=== PATIENT | female | born 1940 | race Caucasian/White ===

== ENCOUNTER 2021-07-11 17:40 | Emergency (ER) | payer MEDICARE, BC ==
[~2021-07-11] VITALS: Ht 152.4 cm; Wt 81.0 kg
--- NOTE | 2021-07-11 17:58 | PHYS DOC ---
Past History Past Surgical History: Knee Replacement General Adult EDM: Chief Complaint: MECHANICAL FALL HPI: HPI: " Look I am not going to be admitted.. I just missed a step.. forgot there was a curb..at the handicap parking.. and fell busting my head, Lt elbow and Lt side my chest.. I didnt black out or any thing... I just got the skin tears.... My lt chest wall sore...".."Just tape me up and send me home.. " I didnt want to come anyway..and certainly not going to stay.." Patient is a 81 year old female who presents with above hx and complaints trip and fall resulting in hitting head and skin tear to left elbow and large contusion left-sided chest. Patient denies any loss of consciousness. Patient had obviously ecchymosis and contusion periorbital left eye. Patient has large skin tear to the elbow left elbow. Has a significant bruise to the left chest wall. No recent travel. No specific ill contacts. Unsure of her last tetanus date. Review of Systems: Review of Systems: Constitutional: Denies fever or chills Eyes: Denies change in visual acuity HENT: Denies nasal congestion or sore throat. Complains of head injury Respiratory: Denies cough or shortness of breath Cardiovascular: Denies chest pain or edema GI: Denies abdominal pain, nausea, vomiting, bloody stools or diarrhea : Denies dysuria Musculoskeletal: Complains of left elbow injury and chest wall contusion Integument: Denies rash Neurologic: Denies headache, focal weakness or sensory changes Endocrine: Denies polyuria or polydipsia Lymphatic: Denies swollen glands Psychiatric: Denies depression or anxiety Family History: Family History: Noncontributory Current Medications: Current Meds: See nursing for home meds Allergies: Allergies: Allergic to NSAIDs Physical Exam: PE: Constitutional: Mild o acute distress, non-toxic appearance. [] HENT: Normocephalic, left facial contusion bilateral external ears normal, oropharynx moist, no oral exudates, nose normal. [] Eyes: PERRLA, EOMI, conjunctiva normal, no discharge. [] Neck: Normal range of motion, no tenderness, supple, no stridor. [] Cardiovascular:Heart rate regular rhythm, no murmur, PMI to left Lungs & Thorax: Bilateral breath sounds clear to auscultation large contusion left chest wall. Midline scar Abdomen: Bowel sounds normal, soft, no tenderness, no masses, no pulsatile masses. [] Skin: Warm, dry, no erythema, no rash. Abrasion contusion scattered contusion left elbow and skin tear Back: No tenderness, no CVA tenderness. [] Extremities: Stable tenderness, no cyanosis, no clubbing, ROM intact, full edema. [] Bilateral knee scars Neurologic: Alert and oriented X 3, normal motor function, normal sensory function, no focal deficits noted. [] Psychologic: Affect anxious, judgement normal, mood normal. [] EKG: EKG: [] Radiology/Procedures: Radiology/Procedures: [ IMAGING REPORT Signed PATIENT: BUTCH PALENCIA ACCOUNT: [id number] : 1940 LOCATION: ER AGE: 81 SEX: F EXAM STATUS: PRE ER ORD. PHYSICIAN: LUISITO BUTLER MD REASON: trip and fall, RIGHT EYE CUT, LEFT EYE BRUISED & SWOLLEN PROCEDURE: CT HEAD AND CERVICAL SPINE WO CT Head W/O Contrast: History: Reason: trip and fall, RIGHT EYE CUT, LEFT EYE BRUISED SWOLLEN / Spl. Instructions: / History: Comparison: none Axial images were obtained without contrast. The dickerson and white matter appears normal and symmetrical for the patients age. There is no mass effect, extraaxial fluid collections or hydrocephalus. There is no gross bleed. There is no focal loss of dickerson-white matter distinction to suggest acute ischemia, i.e. stroke. There is a scalp hematoma above the left orbit. Impression: No acute intracranial findings. End impression CT C-Spine without contrast: Clinical History: Reason: trip and fall, RIGHT EYE CUT, LEFT EYE BRUISED SWOLLEN / Spl. Instructions: / History: Technique: Axial helical images of the cervical spine were obtained without contrast, axial coronal and sagittal reconstruction was performed. Findings: There is no loss of vertebral body stature. There is no prevertebral soft tissue swelling. The vertebral bodies are well aligned. The C1-C2 relationship is normal. The visualized osseous structures appear normal. Evaluation of the central canal is limited without contrast. There is multiple posterior disc bulges resulting in flattening of the thecal sac. At C5-C6 there is a disc ossific ridge which posteriorly is eccentric to the left and causes mild impression on the anterior surface the cervical cord. There is moderate narrowing of multiple neuroforamen and there is marked narrowing of left neuroforamen at C5-C6. Impression: No acute findings. Clinical correlation suggested. PQRS Compliance Statement: One or more of the following individualized dose reduction techniques were utilized for this examination: 1. Automated exposure control 2. Adjustment of the mA and/or kV according to patient size 3. Use of iterative reconstruction technique Electronically signed by: Marck Conn III, MD (07/11/2021 7:04 PM) [facility] DICTATED AND SIGNED BY: MARCK CONN III, MD DATE: 07/11/211856 CC: LUISITO BUTLER MD ~MTH0 0 ][place] [address] IMAGING REPORT Signed PATIENT: BUTCH PALENCIA ACCOUNT: [id number] : 1940 LOCATION: ER AGE: 81 SEX: F EXAM STATUS: PRE ER ORD. PHYSICIAN: LUISITO BUTLER MD REASON: fall PROCEDURE: CHEST PA & LATERAL Exam: Chest 2 views INDICATION: Fall TECHNIQUE: Frontal and lateral views of the chest Comparisons: None FINDINGS: Pacer with leads remaining the right atrium and ventricle. The cardiomediastinal silhouette and pulmonary vessels are within normal limits. The lung and pleural spaces are clear. IMPRESSION: No acute cardiopulmonary process. Electronically signed by: Lori Schreiber MD (07/11/2021 7:59 PM) [facility] DICTATED AND SIGNED BY: LORI SCHREIBER MD DATE: 07/11/211949 CC: LUISITO BUTLER MD ~MTH0 0 Heart Score: C/O Chest Pain: N/A Risk Factors: Risk Factors: DM, Current or recent (<one month) smoker, HTN, HLP, family history of CAD, obesity. Risk Scores: Score 0 - 3: 2.5% MACE over next 6 weeks - Discharge Home Score 4 - 6: 20.3% MACE over next 6 weeks - Admit for Clinical Observation Score 7 - 10: 72.7% MACE over next 6 weeks - Early Invasive Strategies Course & Med Decision Making: Course & Med Decision Making Pertinent Labs and Imaging studies reviewed. (See chart for details) Wounds were cleaned and dressed. Patient apply Polysporin 4 times a day. Use ice packs as needed. Take Tylenol as needed for pain. Must monitor closely for mental status change. Patient vomits more than once must return to the emergency department. Patient discharged to the care of her son. Understanding that if he has any mental status changes or vomits more than once must return the ER for evaluation. Patient currently refusing admission. Patient monitor closely for infection of the left elbow tear. Sleep with head elevated tonight. Return if any concerns. Follow-up primary care. Impression 1. Trip and fall 2. Head contusion/injury 3. Contusion left elbow large skin tear 4. Large chest wall contusion [] Dragon Disclaimer: Dragon Disclaimer: This electronic medical record was generated, in whole or in part, using a voice recognition dictation system. Departure Departure: Scripts Oxycodone HCl/Acetaminophen (Percocet 5-325 mg Tablet) 1 Each Tablet 1 EACH PO QIDPRN PRN for PAIN, #30 TAB Prov: LUISITO BUTLER MD 07/11/21 [place] Disclaimer This chart was dictated in whole or in part using Voice Recognition software in a busy, high-work load, and often noisy Emergency Department environment. It may contain unintended and wholly unrecognized errors or omissions. LUISITO BUTLER MD Jul 11, 2021 17:58
[2021-07-11 18:11] VITALS: BP 156/80
[2021-07-11] MEDS ORDERED: BACITRACIN ZINC TOPICAL OINT PACKET. TP ONE (18:45)
[2021-07-11] MEDS ORDERED: ACETAMINOPHEN 500 MG TABLET PO ONE (18:45)
[2021-07-11] MEDS ORDERED: DIPH,PERTUSS(ACELL),TET VAC/PF 0.5 ML SYRINGE. VAX IM ONE (18:45)
--- NOTE | 2021-07-11 19:06 | RAD ---
CT Head W/O Contrast: History: Reason: trip and fall, RIGHT EYE CUT, LEFT EYE BRUISED SWOLLEN / Spl. Instructions: / His tory: Comparison: none Axial images were obtained without contrast. The dickerson and white matter appears normal and symmetrical for the patients age. There is no mass effe ct, extraaxial fluid collections or hydrocephalus. There is no gross bleed. There is no focal loss of dickerson-white matter distinction to suggest acute ischemia, i.e. stroke. There is a scalp hematoma above the left orbit. Impression: No acute intracranial findings. End impression CT C-Spine without contrast: Clinical History: Reason: trip and fall, RIGHT EYE CUT, LEFT EYE BRUISED SWOLLEN / Spl. Instruction s: / History: Technique: Axial helical images of the cervical spine were obtained without contrast, axial coronal and sagittal reconstruction was performed. Findings: There is no loss of vertebral body stature. There is no prevertebral soft tissue swelling. The vert ebral bodies are well aligned. The C1-C2 relationship is normal. The visualized osseous structures a ppear normal. Evaluation of the central canal is limited without contrast. There is multiple posterio r disc bulges resulting in flattening of the thecal sac. At C5-C6 there is a disc ossific ridge which posteriorly is eccentric to the left and causes mild impression on the anterior surface the cervical cord. There is moderate narrowing of multiple neuroforamen and there is marked narrowing of left thea roforamen at C5-C6. Impression: No acute findings. Clinical correlation suggested. PQRS Compliance Statement: One or more of the following individualized dose reduction techniques were utilized for this examinat ion: 1. Automated exposure control 2. Adjustment of the mA and/or kV according to patient size 3. Use of iterative reconstruction technique Electronically signed by: Rolly Rojas III, MD (07/11/2021 7:04 PM) [facility]
--- NOTE | 2021-07-11 20:01 | RAD ---
Exam: Chest 2 views INDICATION: Fall TECHNIQUE: Frontal and lateral views of the chest Comparisons: None FINDINGS: Pacer with leads remaining the right atrium and ventricle. The cardiomediastinal silhouette and pulmonary vessels are within normal limits. The lung and pleural spaces are clear. IMPRESSION: No acute cardiopulmonary process. Electronically signed by: Lori Alvarado MD (07/11/2021 7:59 PM) [facility]
[2021-07-11] MEDS ORDERED: OXYC-325 PO (22:59)
[2021-07-11] MEDS ORDERED: ONDANSETRON ODT 4 MG TAB.RAPDIS PO ONE (23:30)
[2021-07-11] MEDS ORDERED: oxyCODONE/APAP 5/325 1 TAB TABLET PO ONE (23:30)
== END 2021-07-11 23:41 | disposition home or self-care (01) ==
LOC: ER 17:40
DX: S51.012A Laceration without foreign body of left elbow, initial encounter (principal); S20.212A Contusion of left front wall of thorax, initial encounter; S00.83XA Contusion of other part of head, initial encounter; Z88.6 Allergy status to analgesic agent; W01.0XXA Fall on same level from slipping, tripping and stumbling without subsequent striking against object, initial encounter; Y93.89 Activity, other specified; Y92.89 Other specified places as the place of occurrence of the external cause; Y99.8 Other external cause status
CPT/HCPCS: 70450; 71046; 72125; 90471; 90715; 99285; Q0162